=== PATIENT | male | born 1980 | race Hispanic/Latino ===

== ENCOUNTER 2018-10-18 23:32 | Emergency (ER) | payer SELFPAY ==
[2018-10-19] MEDS ORDERED: Acetaminophen 500 MG TAB ONE (00:54)
[2018-10-19] MEDS ORDERED: Lidocaine 1% w/Epinephrine 1:100K 20 ML VIAL ONE (01:37)
[2018-10-19] MEDS ORDERED: Adacel (T-DAP) 0.5 ML SYRINGE ONE (02:43)
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
== END 2018-10-19 03:09 | disposition home or self-care (01) ==
LOC: ERS 23:32
DX: S06.9X1A Unspecified intracranial injury with loss of consciousness of 30 minutes or less, initial encounter (principal); S02.40DA Maxillary fracture, left side, initial encounter for closed fracture; S01.81XA Laceration without foreign body of other part of head, initial encounter; S10.93XA Contusion of unspecified part of neck, initial encounter; Z23 Encounter for immunization; Y04.8XXA Assault by other bodily force, initial encounter
CPT/HCPCS: 12011; 70450; 70486; 90471; 90715; J2001